=== PATIENT | male | born 1950 | race Two or more races ===

== ENCOUNTER 2020-07-12 12:27 | Emergency (ER) | payer MEDICARE ==
[~2020-07-12] VITALS: Ht 180.3 cm; Wt 102.0 kg
[~2020-07-12 12:27] MED LIST: CANA1TAB8 PO; LIRA0.6P SC; MULT-658 PO; SIMV5TAB14 PO
--- NOTE | 2020-07-12 13:08 | NUR ---
PT A&OX4, RESP EVEN & UNLABORED, SPEECH CLEAR, SKIN WNL EXCEPT POSTERIOR LT SIDED HEAD LAC. HIT HEAD ON CEMENT FLOOR. 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 CURRENTLY: SANTIAGO, MINOR LIGHTHEADEDNESS. DENIES N/V, VISION CHANGES, NUMBNESS/TINGLING TO EXTREMETIES. ABLE TO MOVE ALL EXTREMETIES VOLUNTARILY. NO PAIN MED TAKEN. SPOUSE IN ROOM.
[2020-07-12 13:19] VITALS: BP 130/72
[2020-07-12] MEDS ORDERED: LIRA0.6P2 SQ (13:19)
--- NOTE | 2020-07-12 13:20 | NUR ---
REFUSED PAIN MED, AT THIS TIME
[2020-07-12 13:29] LABS: BASOPHILS # (AUTO) 0.02 x10^3/uL (0-0.1); BASOPHILS % (AUTO) 0 % (0-1); EOSINOPHILS # (AUTO) 0.11 x10^3/uL (0-0.4); EOSINOPHILS % (AUTO) 1 % (1-7); LYMPHOCYTES # (AUTO) 1.45 x10^3/uL (1-3.4); LYMPHOCYTES % (AUTO) 15 % (22-44); MD NO; MEAN CORPUSCULAR HEMOGLOBIN 28.3 pg (27.5-34.5); MEAN CORPUSCULAR HGB CONC 32.5 g/dL (33.2-36.2); MEAN PLATELET VOLUME 9.5 fL (7.4-10.4); MONOCYTES # (AUTO) 0.66 x10^3/uL (0.2-0.8); MONOCYTES % (AUTO) 7 % (2-9); NEUTROPHILS # (AUTO) 7.42 x10^3/uL (1.8-6.8); NEUTROPHILS % (AUTO) 77 % (42-75); PLATELET COUNT 257 x10^3/uL (130-400); RED BLOOD COUNT 5.39 x10^6/uL (4.38-5.82); RED CELL DISTRIBUTION WIDTH 13.1 % (9.4-14.8)
[2020-07-12] MEDS ORDERED: LIDOCAINE 1%-EPI 1:100K, 20ML SQ ONE (13:30)
[2020-07-12] MEDS ORDERED: L.E.T SOLUTION TP ONE ×2 (13:30→13:31)
[2020-07-12 13:40] LABS: ALANINE AMINOTRANSFERASE 31 U/L (12-78); ALBUMIN 3.6 g/dL (3.4-5.0); ANION GAP 6 mmol/L (5-15); CALCIUM 8.4 mg/dL (8.5-10.1); CHLORIDE 108 mmol/L (98-107); CREATININE 0.65 mg/dL (0.7-1.3)
[2020-07-12 13:42] LABS: ALKALINE PHOSPHATASE 95 U/L (45-117); BILIRUBIN,TOTAL 0.5 mg/dL (0.2-1.0); TOTAL PROTEIN 6.9 g/dL (6.4-8.2)
[2020-07-12] MEDS ORDERED: LIDOCAINE-MPF 1%, 5ML ONE (13:53)
--- NOTE | 2020-07-12 13:53 | NUR ---
PT REPORT TO ELIZABETH AVERY. PT CARE TRANSFERRED.
[2020-07-12] MEDS ORDERED: LIDOCAINE-MPF 1%, 5ML INFIL ONE (14:00)
--- NOTE | 2020-07-12 14:35 | NUR ---
BACK FROM CT, VSS. WATCHING TV. WILL CONTINUE TO MONITOR
== END 2020-07-12 15:53 | disposition home or self-care (01) ==
LOC: ED 15:20
DX: S01.01XA Laceration without foreign body of scalp, initial encounter (principal); R55 Syncope and collapse; R94.31 Abnormal electrocardiogram [ECG] [EKG]; E11.9 Type 2 diabetes mellitus without complications; Z96.652 Presence of left artificial knee joint; X58.XXXA Exposure to other specified factors, initial encounter; Y93.89 Activity, other specified; Y92.89 Other specified places as the place of occurrence of the external cause; Y99.8 Other external cause status
CPT/HCPCS: 12002; 36415; 70450; 80053; 85025; 93005; 99285

== ENCOUNTER 2021-02-12 05:08 | Emergency (ER) | payer MEDICARE ==
[~2021-02-12] VITALS: Ht 177.8 cm; Wt 104.2 kg
[~2021-02-12 05:08] MED LIST changes: +LIRA0.6P2 SQ
[2021-02-12 05:52] LABS: BASOPHILS % (AUTO) 0 % (0-1); EOSINOPHILS % (AUTO) 1 % (1-7); LYMPHOCYTES % (AUTO) 23 % (22-44); MEAN CORPUSCULAR HEMOGLOBIN 28.8 pg (27.5-34.5); MEAN CORPUSCULAR HGB CONC 33.6 g/dL (33.2-36.2); MEAN PLATELET VOLUME 9.6 fL (7.4-10.4); MONOCYTES % (AUTO) 8 % (2-9); NEUTROPHILS % (AUTO) 68 % (42-75); PLATELET COUNT 243 x10^3/uL (130-400); RED BLOOD COUNT 4.62 x10^6/uL (4.38-5.82); RED CELL DISTRIBUTION WIDTH 13.6 % (9.4-14.8)
[2021-02-12] MEDS ORDERED: SYNJARDY PO (05:53)
--- NOTE | 2021-02-12 05:55 | NUR ---
PT CAME INTO THE ED THIS AM DUE TO BLOODY STOOLS STARTING YESTERDAY. PT REPORTS 4 SIGNIFICANT BLOODY STOOLS, DARKER IN COLOR. PT REPORTS MILD FATIGUE AND WEAKNESS SINCE THIS OCCURENCE. PT RESTING ON GURNEY, GROSS NEURO INTACT, DENIES N/V. BED IN [facility], RAILS ENGAGED, CALL LIGHT ON LAP, AT BS. WCTM. WAITING FOR CT AT THIS TIME
[2021-02-12 05:57] LABS: MD NO
[2021-02-12 06:00] LABS: ALANINE AMINOTRANSFERASE 27 U/L (12-78); ALBUMIN 3.7 g/dL (3.4-5.0); ANION GAP 4 mmol/L (5-15); CALCIUM 8.6 mg/dL (8.5-10.1); CHLORIDE 104 mmol/L (98-107)
[2021-02-12 06:03] LABS: ALKALINE PHOSPHATASE 81 U/L (45-117); BILIRUBIN,TOTAL 0.7 mg/dL (0.2-1.0); CREATININE 0.71 mg/dL (0.7-1.3); TOTAL PROTEIN 6.3 g/dL (6.4-8.2)
[2021-02-12] MEDS ORDERED: OMNIPAQUE 350 MG/ML, 100ML BOTTLE ONE (06:15)
--- NOTE | 2021-02-12 06:54 | NUR ---
report to clemente sidhu, pt care transferred at this time.
[2021-02-12 08:28] VITALS: BP 129/78
--- NOTE | 2021-02-12 08:36 | NUR ---
PT REC'VD DISCHARGE INSTRUCTIONS AND EDUCATION. PT AND SPOUSE HAD NO FURTHER QUESTIONS. PT AND SPOUSE AMBULATED TO DC AREA, STEADY GAIT.
== END 2021-02-12 08:42 | disposition home or self-care (01) ==
LOC: ED 08:15
DX: K92.1 Melena (principal); E11.9 Type 2 diabetes mellitus without complications; Z87.891 Personal history of nicotine dependence
CPT/HCPCS: 36415; 74177; 80053; 85025; 99285; Q9967